=== PATIENT | female | born 1950 | race Caucasian/White ===

== ENCOUNTER 2022-04-19 16:33 | Emergency (ER) | payer MEDICARE, SELFPAY ==
[2022-04-19] VITALS (7 sets, daily range): BP systolic 113–140; BP diastolic 54–67; PULSE 79–91; RESP 20–22; TEMP 36.7–36.9; O2SAT 89–94; BMI 38.2
--- NOTE | 2022-04-19 17:24 | XR_ITS ---
PROCEDURE INFORMATION: Exam: XR Chest Exam date and time: 04/19/2022 5:22 PM Age: 72 years old Clinical indication: Cough and other: Congestion; Patient HX: Shortness of breath, cough, congestion. Quit smoking 2006; Additional info: SOA, productive cough TECHNIQUE: Imaging protocol: Radiologic exam of the chest. Views: 2 views. COMPARISON: No relevant prior studies available. FINDINGS: Lungs: Hazy airspace opacity in right lower lobe. Pleural spaces: Unremarkable. No pleural effusion. No pneumothorax. Heart/Mediastinum: Unremarkable. No cardiomegaly. Bones/joints: Unremarkable. IMPRESSION: Hazy airspace opacity in right lower lobe can be attributed to atelectasis or developing pneumonia in the appropriate clinical context.
--- NOTE | 2022-04-19 17:25 | PC.NURSE ---
rad notified of xray order
[2022-04-19 17:51] LABS: Chloride 93 mmol/L (98-107); Sodium 138 mmol/L (136-145)
[2022-04-19 17:52] LABS: Basophils # 0.1 K/mm3 (0-0.2); Basophils % 0.5 % (0.1-2.0); Eosinophils # 0.2 K/mm3 (0.0-0.4); Eosinophils % 1.1 % (0.1-12.0); Hematocrit 47.9 % (37.0-47.0); Lymphocytes # 1.2 K/mm3 (0.7-4.5); Lymphocytes % 9.2 % (10-50); Mean Corpuscular HGB Conc 31.4 g/dL (31.8-35.4); Mean Corpuscular Volume 92.4 fl (81-99); Mean Platelet Volume 8.6 fl (7.4-10.4); Monocytes # 0.7 K/mm3 (0.1-1.0); Neutrophils # 11.3 K/mm3 (1.8-7.8); Neutrophils % 84.2 % (37.0-80.0); Platelet Count 228 K/mm3 (142-424); Potassium 3.6 mmoL/L (3.5-5.1); Red Blood Count 5.18 M/mm3 (4.20-5.40); Red Cell Distribution Width 14.1 % (11.5-17.5); White Blood Count 13.4 K/mm3 (4.8-10.8)
[2022-04-19 17:54] LABS: Alanine Aminotransferase 13 U/L (12-78); Albumin Level 4.1 g/dl (3.5-5.0); Albumin/Globulin Ratio 1.3 (1.1-1.8); Alkaline Phosphatase 64 U/L (38-126); Aspartate Amino Transferase 19 U/L (14-36); Bilirubin,Total 0.5 mg/dl (0.2-1.3); Blood Urea Nitrogen 18 mg/dl (7-17); Creatinine Clearance Estimated 86 mL/min (50-200); Estimated Glomerular Filt Rate 83 ml/min (>60); GFR (African American) 100 ML/MIN (>60); Globulin 3.2 g/dL (1.3-3.2); Total Protein,Serum 7.3 g/dl (6.3-8.2)
[2022-04-19 17:55] LABS: Anion Gap 10.6 mEq/L (5-15); Carbon Dioxide 38 mmol/L (22.0-30.0); Glucose 108 mg/dl (74-100)
--- NOTE | 2022-04-19 18:09 | PC.NURSE ---
covid swab sent to lab at this time
[2022-04-19 18:13] LABS: Coronavirus 19, PCR Not Detected (NotDetected); Influenza A, PCR Not Detected (NotDetected); Influenza B, PCR Not Detected (NotDetected)
[2022-04-19 18:16] LABS: Lactic Acid 0.7 mmol/L (0.7-2.1)
--- NOTE | 2022-04-19 19:46 | HMH.EDGENADL ---
Discharge Plan Disposition Patient Disposition: Home, Self-Care Condition: Fair Prescriptions Prescriptions: New azithromycin [Zithromax] 250 mg tablet 250 mg PO DAILY 4 Days Qty: 4 0RF Rx Instructions: start on day 2 of therapy cefdinir 300 mg capsule 300 mg PO BID 10 Days Qty: 20 0RF prednisone 20 mg tablet 20 mg PO BID Qty: 10 0RF Referrals Follow up/Referrals: Casandra Lawton APRN [Primary Care Provider] - See instructions Activity Restrictions/Add. Instructions Additional Instructions/Restrictions: Additional instructions for PNEUMONIA: Take antibiotics as prescribed. See your physician as soon as possible for further evaluation. Return immediately if you have an uncontrollable fever greater than 102 degrees, difficulty breathing or shortness of breath, persistent vomiting, or severe chest pain. Continue oxygen. Take prednisone as prescribed. Use albuterol inhaler 2 puffs 4 times a day. Clinical Impressions Clinical Impression: Community acquired pneumonia, Acute hypoxemic respiratory failure, COPD (chronic obstructive pulmonary disease) Instructions Patient Instructions: DI for Chronic Obstructive Pulmonary Disease, DI for Pneumonia -- Adult Discharge ED Provider: Seven Abdi General Adult HPI General Chief complaint: Shortness of Breath/Dyspnea Stated complaint: Congestion,Cough,Fever Time Seen by Provider: 04/19/22 19:33 Mode of Arrival: Ambulatory Source of Information: Patient Limitations: No Limitations Description of Symptoms (Recalled from ER Triage Doc. by RN): pt reports productive cough x3 days, increased SOA and low SaO2 on home oxygen at 3L per NC. Pt reports was seen at [facility] approx 2 weeks ago, was sent to ER from pcp office r/t low SaO2 for PE work up r/t recent air plane travel. Pt reports was told she was positive for the flu negative on all other tests was sent home on home O2. Pt reports until 3 days ago was only wearing O2 at night. History of Present Illness HPI narrative: Patient states she has a history of COPD. She complains of cough, shortness of breath, low oxygen saturation. She says that 2 weeks ago she had shortness of breath and was sent to the emergency department at [facility] to rule out a pulmonary embolism because she had recently had air travel. She had a CT angiogram that was negative. Flu test was positive. She says her oxygen saturation was low, in the 70s at the doctor's office. She was sent home from the emergency department on home oxygen 3 L. She was able to eventually decrease it to only wearing it at night, but over the past 3 days has a worse productive cough, shortness of breath, and her oxygen saturation drops into the 70s when she gets up and walks around. She therefore has been wearing the oxygen 24 hours for the past couple of days. She feels feverish but has not had a documented fever. She has a wet nose , denies sore throat. Denies chest pain. She is a former smoker. She is not on any treatment at home for COPD. Related Data Previous Rx's Medication Instructions Recorded azithromycin 250 mg tablet 250 mg PO DAILY 4 days #4 tabs 04/19/22 (Zithromax) cefdinir 300 mg capsule 300 mg PO BID 10 days #20 caps 04/19/22 prednisone 20 mg tablet 20 mg PO BID #10 tabs 04/19/22 Allergies Allergy/AdvReac Type Severity Reaction Status Date / Time ciprofloxacin [From Cipro] Allergy Verified 04/19/22 16:59 codeine Allergy Verified 04/19/22 16:59 diazepam [From Valium] Allergy Verified 04/19/22 16:59 guaifenesin [From Entex LA] Allergy Verified 04/19/22 16:59 phenylephrine [From Entex LA] Allergy Verified 04/19/22 16:59 phenylpropanolamine Allergy Verified 04/19/22 16:59 [From Entex LA] promethazine [From Phenergan] Allergy Verified 04/19/22 16:59 Sulfa (Sulfonamide Allergy Verified 04/19/22 16:59 Antibiotics) [facility] Disclaimer: The information contained in this section may hav
--- NOTE | 2022-04-19 19:57 | PC.NURSE ---
shift change report given to rafa magallanesrn
--- NOTE | 2022-04-19 20:36 | PC.NURSE ---
Lab called and stated that covid/flu swab failed 2x and asked for a recollect. s/w Pt she agreed to a 2nd swab and this was sent to lab.
== END 2022-04-19 22:33 | disposition home or self-care (01) ==
PROVIDERS: Emergency Provider Emergency Medicine; PCP Nurse Practitioner Family
DX: J96.01 Acute respiratory failure with hypoxia (principal); J18.9 Pneumonia, unspecified organism; J44.9 Chronic obstructive pulmonary disease, unspecified
CPT/HCPCS: 71046; 80053; 83605; 85025; 87040; 90471; 96374; 96375; 99285; C9803; J0456; J0696; J2405; U0003; U0005

== ENCOUNTER 2022-09-04 14:18 | Emergency (ER) | payer MEDICARE, SELFPAY ==
[2022-09-04] VITALS (9 sets, daily range): BP systolic 119–154; BP diastolic 60–71; PULSE 76–98; RESP 18–20; TEMP 36.7; O2SAT 68–93; BMI 36.6
--- NOTE | 2022-09-04 14:30 | PC.NURSE ---
RESPIRATORY NOTIFIED OF G
--- NOTE | 2022-09-04 14:34 | PC.NURSE ---
RESPIRATORY AT BEDSIDE
--- NOTE | 2022-09-04 14:36 | PC.NURSE ---
RT at BS
--- NOTE | 2022-09-04 14:40 | PC.NURSE ---
CARLITO VELASCO at
--- NOTE | 2022-09-04 14:42 | PC.NURSE ---
DR LLANOS AT BEDSIDE
[2022-09-04 14:51] LABS: ABG Base Excess 6.8 mmol/L (-2.4-2.3); ABG HCO3 31.7 mmhg (22.0-26.0); ABG Oxygen Saturation 88 % (90-100); ABG PH 7.39 mmol/L (7.35-7.45); ABG PO2 50.4 mmhg (80-100); ABG TCO2 33.3 mmhg (23-27)
--- NOTE | 2022-09-04 14:51 | CT_ITS ---
PROCEDURE INFORMATION: Exam: CT Head Without Contrast Exam date and time: 09/04/2022 3:05 PM Age: 72 years old Clinical indication: Pain; Headache not specified TECHNIQUE: Imaging protocol: Computed tomography of the head without contrast. Radiation optimization: All CT scans at this facility use at least one of these dose optimization techniques: automated exposure control; mA and/or kV adjustment per patient size (includes targeted exams where dose is matched to clinical indication); or iterative reconstruction. REPORTING DATA: Count of CT and Cardiac NM exams in prior 12 months: This patient has received 0 known CTs and 0 known cardiac nuclear medicine studies in the 12 months prior to the current study. COMPARISON: No relevant prior studies available. FINDINGS: Brain: Normal. No hemorrhage. Unremarkable white matter. No mass effect. Cerebral ventricles: No ventriculomegaly. Paranasal sinuses: Right maxillary sinus retention cyst versus polyp Mastoid air cells: Visualized mastoid air cells are well aerated. Bones/joints: Unremarkable. No acute fracture. Soft tissues: Unremarkable. IMPRESSION: No evidence of acute intracranial abnormality.
[2022-09-04 14:52] LABS: Allen's Test Acceptable; Oxygen 2 L NC %; Source Right Radial
--- NOTE | 2022-09-04 14:53 | PC.NURSE ---
abg results given to CARLITO VELASCO
[2022-09-04 14:54] LABS: ABG PCO2 53.3 mmhg (35.0-45.0)
--- NOTE | 2022-09-04 14:55 | PC.NURSE ---
rad notified of ct order
--- NOTE | 2022-09-04 15:02 | PC.NURSE ---
pt to CT via wheelchair
--- NOTE | 2022-09-04 15:09 | PC.NURSE ---
PT RETURNED FROM CT
[2022-09-04 15:10] LABS: Basophils % 0.3 % (0.1-2.0); Eosinophils # 0.1 K/mm3 (0.0-0.4); Eosinophils % 1.1 % (0.1-12.0); Hematocrit 45.6 % (37.0-47.0); Hemoglobin 14.7 g/dL (12.2-16.2); Lymphocytes # 0.8 K/mm3 (0.7-4.5); Lymphocytes % 6.1 % (10-50); Mean Corpuscular HGB Conc 32.2 g/dL (31.8-35.4); Mean Corpuscular Hemoglobin 29.2 pg (27.0-31.2); Mean Corpuscular Volume 90.7 fl (81-99); Mean Platelet Volume 8.1 fl (7.4-10.4); Monocytes # 0.4 K/mm3 (0.1-1.0); Monocytes % 3.4 % (1.7-9.3); Neutrophils # 11.7 K/mm3 (1.8-7.8); Neutrophils % 89.2 % (37.0-80.0); Platelet Count 257 K/mm3 (142-424); Red Blood Count 5.03 M/mm3 (4.20-5.40); Red Cell Distribution Width 13.8 % (11.5-17.5); White Blood Count 13.1 K/mm3 (4.8-10.8)
[2022-09-04 15:14] LABS: MANUAL DIFFERENTIAL MANUAL DIFFERENTIAL (MANUAL DIFF)
[2022-09-04 15:16] LABS: Alanine Aminotransferase 21 U/L (12-78); Albumin/Globulin Ratio 1.2 (1.1-1.8); Alkaline Phosphatase 60 U/L (38-126); Anion Gap 16.1 mEq/L (5-15); Aspartate Amino Transferase 24 U/L (14-36); Bilirubin,Total 0.4 mg/dl (0.2-1.3); Blood Urea Nitrogen 15 mg/dl (7-17); Calcium 8.3 mg/dl (8.4-10.2); Carbon Dioxide 36 mmol/L (22.0-30.0); Chloride 90 mmol/L (98-107); Creatinine Clearance Estimated 82 mL/min (50-200); Estimated Glomerular Filt Rate 83 ml/min (>60); GFR (African American) 100 ML/MIN (>60); Globulin 3.3 g/dL (1.3-3.2); Glucose 127 mg/dl (74-100); Potassium 4.1 mmoL/L (3.5-5.1); Sodium 138 mmol/L (136-145); Total Protein,Serum 7.3 g/dl (6.3-8.2)
--- NOTE | 2022-09-04 15:30 | CT_ITS ---
PROCEDURE INFORMATION: Exam: CTA Chest With Contrast Exam date and time: 09/04/2022 3:46 PM Age: 72 years old Clinical indication: Other: Hypoxia TECHNIQUE: Imaging protocol: Computed tomographic angiography of the chest with contrast. Exam focused on the arteries. 3D rendering (Not supervised by radiologist): MIP and/or 3D reconstructed images were created by the technologist. Radiation optimization: All CT scans at this facility use at least one of these dose optimization techniques: automated exposure control; mA and/or kV adjustment per patient size (includes targeted exams where dose is matched to clinical indication); or iterative reconstruction. Contrast material: ISOVUE 370; Contrast volume: 70 ml; Contrast route: INTRAVENOUS (IV); REPORTING DATA: Count of CT and Cardiac NM exams in prior 12 months: This patient has received 0 known CTs and 0 known cardiac nuclear medicine studies in the 12 months prior to the current study. COMPARISON: CR XR CHEST 2V 04/19/2022 5:22 PM FINDINGS: Pulmonary arteries: Mild prominence of the main pulmonary artery. Clinically correlate regarding pulmonary arterial hypertension. Bilateral perihilar lymph nodes demonstrated. Aorta: Regions of atherosclerotic vascular calcification involving the aortic arch. Lungs: Patchy bilateral gland ground-glass regions of opacification. Regions of bronchiectasis and mucous plugging demonstrated anteriorly in the lingula. Associated subsegmental atelectasis. Patchy regions of airspace opacification in the juxtapleural regions bilaterally . Pleural spaces: Poorly defined 12 mm pleural based nodular region of opacification measuring 12 mm posteriorly in the right lung apex. Malignancy could not be excluded. Heart: Unremarkable. No cardiomegaly. No pericardial effusion. Coronary arteries: Coronary artery calcification Lymph nodes: Nonspecific mediastinal lymph nodes measuring up to 12 mm. Liver: Hepatic steatosis. Spleen: Evidence of prior splenic Bones/joints: Unremarkable. No acute fracture. Soft tissues: Unremarkable. IMPRESSION: 1. Poorly defined 12 mm pleural based nodular region of opacification measuring 12 mm posteriorly in the right lung apex. Malignancy could not be excluded. For both low risk and high risk patients, consider CT Chest at 3 months, PET/CT, or biopsy. (Reference: Addis) 2. Findings compatible with interstitial lung disease. Superimposed patchy bilateral airspace opacities which may be infectious in etiology. 3. Please see above report for discussion of nonacute findings. REFERENCES: Addis Babb et al. Guidelines for Management of Incidental Pulmonary Nodules Detected on CT Images: From the Fleischner Society 2017. Radiology. 2017;284(1):228-243.
[2022-09-04 15:45] LABS: Hypochromasia 2+; Lymphocytes % 9 % (10-50); Monocytes % 3 % (2-9); Neutrophils % 88 % (42-76); Platelet Estimate Normal; Total Cells Counted 100
--- NOTE | 2022-09-04 15:53 | PC.NURSE ---
PT RETURNED FROM CT
--- NOTE | 2022-09-04 16:16 | PC.NURSE ---
PT MEDICATED PER EMAR, LIGHTS OFF, AT BEDSIDE. PT WITHOUT NEEDS AT THIS TIME
--- NOTE | 2022-09-04 16:46 | PC.NURSE ---
pt restroom and back independently, pt tolerated well. Pt reports headache has improved some. Pt sitting up on side of the bed per her request.
--- NOTE | 2022-09-04 16:55 | PC.NURSE ---
ROUNDED ON PT , REPORTS HEADACHE IMPROVED, NO NEEDS AT THIS TIME. AT BEDSIDE
--- NOTE | 2022-09-04 17:21 | PC.NURSE ---
DR LLANOS AT BEDSIDE TO UPDATE PT
--- NOTE | 2022-09-04 17:29 | HMH.EDGENADL ---
Discharge Plan Disposition Patient Disposition: Home, Self-Care Condition: Good Chief Complaint: Headache Prescriptions Prescriptions: No Action azithromycin [Zithromax] 250 mg tablet 250 mg PO DAILY 4 Days Qty: 4 0RF Rx Instructions: start on day 2 of therapy cefdinir 300 mg capsule 300 mg PO BID 10 Days Qty: 20 0RF prednisone 20 mg tablet 20 mg PO BID Qty: 10 0RF Referrals Follow up/Referrals: Casandra Lawton APRN [Primary Care Provider] - See instructions Clinical Impressions Clinical Impression: Headache Discharge ED Provider: Farhat Callahan General Adult HPI General Chief complaint: Headache Stated complaint: Headache,vomiting,nose bleed Time Seen by Provider: 09/04/22 14:35 Mode of Arrival: Ambulatory Source of Information: Patient Limitations: No Limitations Description of Symptoms (Recalled from ER Triage Doc. by RN): pt reports headache that began monday night. Reports took tylenol x9 tablets yesterday with no relief of headache. Pt reports has been dizzy, began vomiting lasntight and had a nose bleed. Pt reports has not had nose bleeds before. SaO2 68% on RA, pt reports normal SaO2 for her is around 85% on RA reports she wears O2 at 2.5L per NC at night only. Pt denies SOA, no distress noted. Nail beds cyanotic in color on ignacio hands. Pt placed on O2 per NC, SaO2 improved. History of Present Illness HPI narrative: 72yo F presents the ER secondary to 4 days of headache. Took Tylenol yesterday with no improvement. Denies focal neurodeficit. No history of stroke. Complains of nausea with vomiting last night and had a nosebleed. No history of nosebleed in the past. Patient wears 2 L nasal cannula at home. Family bedside reports she typically runs 85% on her home O2. Related Data Previous Rx's Medication Instructions Recorded azithromycin 250 mg tablet 250 mg PO DAILY 4 days #4 tabs 04/19/22 (Zithromax) cefdinir 300 mg capsule 300 mg PO BID 10 days #20 caps 04/19/22 prednisone 20 mg tablet 20 mg PO BID #10 tabs 04/19/22 Allergies Allergy/AdvReac Type Severity Reaction Status Date / Time ciprofloxacin [From Cipro] Allergy Verified 04/19/22 16:59 codeine Allergy Verified 04/19/22 16:59 diazepam [From Valium] Allergy Verified 04/19/22 16:59 guaifenesin [From Entex LA] Allergy Verified 04/19/22 16:59 phenylephrine [From Entex LA] Allergy Verified 04/19/22 16:59 phenylpropanolamine Allergy Verified 04/19/22 16:59 [From Entex LA] promethazine [From Phenergan] Allergy Verified 04/19/22 16:59 Sulfa (Sulfonamide Allergy Verified 04/19/22 16:59 Antibiotics) [facility] Disclaimer: The information contained in this section may have been updated after the patient was seen, as this information can be updated by other users. Social History Smoking Status: Former smoker alcohol intake: never current occupational status: retired Travel in the last 8 weeks: None ROS Obtained: Yes Systems reviewed as appropriate & no additional complaints except as documented Physical Exam General General appearance: alert and in no apparent distress Head Head exam: atraumatic Eye Eye exam: Present PERRL and EOMI ENT ENT exam: Present mucous membranes moist Neck Neck exam: Present trachea midline Chest Chest inspection: Present symmetric chest wall rise Respiratory Respiratory exam: Present normal lung sounds bilaterally; Absent respiratory distress Cardiovascular Cardiovascular exam: Present regular rate, normal rhythm and normal heart sounds Abdominal Exam Abdominal exam: Present soft; Absent distention or tenderness Extremities Exam Extremities exam: Present normal capillary refill; Absent tenderness Back Exam Back exam: Present normal inspection Neurological Exam Neurological exam: Present alert, oriented X3 and normal gait Psychiatric Psychiatric exam: Present normal affect Skin Skin exam: P
== END 2022-09-04 17:40 | disposition home or self-care (01) ==
PROVIDERS: Emergency Provider Family Medicine; PCP Nurse Practitioner Family
DX: R51.9 Headache, unspecified (principal); R11.2 Nausea with vomiting, unspecified; R04.0 Epistaxis; Z87.891 Personal history of nicotine dependence
CPT/HCPCS: 70450; 71275; 80053; 82803; 85007; 85025; 96361; 96372; 96374; 99284; 99285; Q9967

== ENCOUNTER 2024-05-16 10:02 | Outpatient (CLI) | payer MEDICARE, SELFPAY ==
--- NOTE | 2024-05-16 10:08 | CT_ITS ---
FINAL REPORT TECHNIQUE: Axial images were obtained through the chest without contrast. Coronal and sagittal images were obtained and reviewed. Insert low-dose CLINICAL HISTORY: PLEURAL EFFUSION COMPARISON: CTA 09/04/2022 FINDINGS: There are moderate calcifications of the aortic arch. There is no significant mediastinal mass or adenopathy. The heart size is normal. There is no pericardial or pleural effusion. Moderate changes of centrilobular emphysema are noted. Scarring is seen in the lingula. No suspicious infiltrate or nodule identified. Limited images of the upper abdomen demonstrate no acute findings. IMPRESSION: No acute process. No pleural effusion identified. Reviewed, Interpreted and Dictated by Francisco Farah MD Transcribed by Paula Meléndez Authenticated and [facility]
== END 2024-05-16 23:59 | disposition home or self-care (01) ==
LOC: RAD 10:03
PROVIDERS: PCP Nurse Practitioner; Visit Provider Nurse Practitioner Family
DX: J90 Pleural effusion, not elsewhere classified (principal)
CPT/HCPCS: 71250

== ENCOUNTER 2024-12-04 10:11 | Outpatient (CLI) | payer MEDICARE, SELFPAY ==
--- OUTSIDE RECORDS SUMMARY | 2024-12-05 11:07 | XMS_ITS | Clinical Summary ---
Author Organization [facility] Address [address] [place] [address] Care Team Providers Care Skidder Lever Operator Name Role Phone Emilee Vieyra Primary Care Provider [phone] Allergies Active Allergy Reactions Criticality Noted Date Comments Ciprofloxacin Hcl Hives 02/09/2022 Codeine Nausea And Vomiting,Headache 04/30/2015 Diazepam Nausea And Vomiting 04/30/2015 Pseudoephedrine-Guaifenesin Other (See C omwanda),GI Intolerance 02/09/2022 shakes Promethazine Nausea And Vomiting 02/09/2022 Sulfa Antibiotics GI Intolerance 04/30/2015 Medications levothyroxine (SYNTHROID, LEVOTHROID) 25 MCG tablet 01/21/2022 Active omeprazole (priLOSEC) 40 MG capsule 01/21/2022 Active triamterene-hyd rochlorothiazid e (MAXZIDE-25) 37.5-25 MG per tablet 01/21/2022 Active sertraline (ZOLOFT) 100 MG tablet 01/17/2022 Active Zinc 50 MG tablet Take by mouth. Active APPLE CIDER VINEGAR PO Take by mouth. Active Trelegy Ellipta 100-62.5-25 MCG/ACT inhaler 01/20/2023 Act ana D-3-5 125 MCG (5000 UT) capsule capsule Take 1 capsule by mouth Daily. 11/17/2023 Active albuterol sulfate HFA 108 (90 Base) MCG/ACT inhaler 03/06/2024 Act ana traZODone (DESYREL) 100 MG tablet 03/07/2024 Active eplerenone (INSPRA) 50 MG tablet Take 1 tablet by mouth Daily. 07/12/2024 Active potassium chloride (Klor-Con M20) 20 MEQ CR tablet Take 1 tablet by mouth 3 (Three) Times a Week. 12 tablet 1 10/08/2024 Active furosemide (LASIX) 40 MG tablet Take 1 tablet by mouth 3 (Three) Times a Week. 12 tablet 1 10/08/2024 Active Active Problems Problem Noted Date Diagnosed Date Fibrocystic breast changes 2024 Low back pain 2024 Malignant neoplasm of urinary bladder 2024 Mixed anxiety depressive disorder 2024 Osteoarthritis 2024 Osteopenia 2024 Shortness of breath 2024 Essential hypertension 04/21/2023 Gastroesophageal reflux disease without esophagi tis 04/21/2023 Hypothyroidism 04/21/2023 Primary insomnia 04/21/2023 Vitamin D deficiency 04/21/2023 Acute exacerbation of chronic obstructive pulmon duncan disease 01/03/2023 Encounters Date Type Department Care Team Description 10/08/2024 Refill [facility] [address] [facility] [place] [id number] Yoshi Mckeon MD Med Refill from Last 3 Months Family History Medical History Relation Name Comments No Known Problems Father Diabetes Maternal Grandmother [place] Heart attack Maternal Grandmother [place] Osteoporosis Mother Sarah Monroy Cancer Paternal Grandmother Luna Jenkins Cancer Sister Luna Tejeda Relation Name Status Comments Father Maternal Grandmother [place] Mother Sarah Monroy Paternal Grandmother Luna Jenkins Sister Luna Tejeda Social History Tobacco Use Types Packs/Day Years Used Date Smoking Tobacco: Former Cigarettes 3.5 38.3 0 04/17/1967 - 07/21/2006 Smokeless Tobacco: Never Tobacco Cessation:Counseling Given: Not Answered Alcohol Use Standard Drinks/Week Comments Never 0 (1 standard drink = 0.6 oz pur e alcohol) Comments Unknown Sex and Gender Information Value Date Recorded Sex Assigned at Female 08/27/2024 11:13 AM EDT Legal Sex Female 12:36 PM EDT Gender Identity Not on file Sexual Orientation Straight 08/27/2024 11 :13 AM EDT Last Filed Vital Signs Vital Sign Reading Time Taken Comments Blood Pressure 120/80 08/28/2024 9:54 AM EDT Pulse 92 12/19/2023 10:08 AM EDT Temperature 36.7 C (98 F) 04/30/2015 9:22 AM EST Respiratory Rate 18 12/19/2023 10:08 AM EDT Oxygen Saturation 95% 12/19/2023 10:08 AM EDT Inhaled Oxygen Concentration - - Weight 103 kg (227 lb 9.6 oz) 08/28/2024 9:54 AM EDT Height 166 cm (5' 5.35 ) 08/28/2024 9:54 AM EDT Body Mass Index 37.47 08/28/2024 9:54 AM EDT Plan of Treatment Health Maintenance Due Date Last Done Comments DXA SCAN 1952 TDAP/TD VACCINES (1 - Tdap) 1971 MAMMOGRAM 1992 COLOGUARD 1997 COLON CANCER SCREENING 5 YEA R SIGMOIDOSCOPY 1997 COLONOSCOPY 1997 [address] CANCER SCREENING 1997 CT COLONOGRAPHY 1997 FECAL OCCULT BLOOD TEST 1997 FIT Testing (1 year) 1997 ZOSTER VACCINE (1 of 2) 2002 ANNUAL WELLNESS VISIT 02/09/2022 HEPATITIS C SCREENING 02/09/2022 Pneumococcal Vaccine 50+ (2 of 2 - PCV) 07/08/2023 07/07/2022 COVID-19 Vaccine (3 - 2023-2 5 season) 2023 03/06/2021, 06/25/2020 INFLUENZA VACCINE 01/15/2025 02/10/2023, , 02/15/2020, Additional history exists [place] [address] [address] MEDICARE ADVANTAGE HMO Care Teams Skidder Lever Operator Relationship Specialty Start Date End Date Emilee Vieyra Sheree [address] [place] [address] PCP - General Nurse Practitioner 08/22/23
--- OUTSIDE RECORDS SUMMARY | 2024-12-05 11:07 | XMS_ITS | Encounter Summary ---
Author Organization [facility] Address [address] [place] [id number] Care Team Providers Care Front Office Spec Name Role Phone Emilee Vieyra Primary Care Provider [phone] Reason for Visit * Reason Onset Date Comments Error 09/23/2022 Encounter Details Date Type Department Care Team (Late st Contact Info) Description 09/23/2022 Telephone [facility] [address] [place] [address] Luis Carlos Mar MD [address] [address] Error Social History Tobacco Use Types Packs/Day Years Used Date Smoking Tobacco: Former Cigarettes 3.5 30 1 976 - 2006 Smokeless Tobacco: Never Alcohol Use Standard Drinks/Week Comments Never 0 (1 standard drink = 0.6 oz pur e alcohol) Comments Unknown Sex and Gender Information Value Date Recorded Sex Assigned at Female 08/27/2024 11:13 AM EDT Legal Sex Female 12:36 PM EDT Gender Identity Not on file Sexual Orientation Straight 08/27/2024 11 :13 AM EDT documented as of this encounter Plan of Treatment Not on file documented as of this encounter Visit Diagnoses Not on filedocumented in this encounter Care Teams Front Office Spec Relationship Specialty Start Date End Date Emilee Vieyra [address] [place] [address] PCP - General Nurse Practitioner 08/22/23 documented as of this encounter
--- OUTSIDE RECORDS SUMMARY | 2024-12-05 11:07 | XMS_ITS | Encounter Summary ---
Author Organization [facility] Address [address] [place] [address] Care Team Providers Care Various Exceptionalities Teacher Name Role Phone Emilee Vieyra Primary Care Provider [phone] Reason for Visit * Reason Comments Med Refill Encounter Details Date Type Department Care Team (Late st Contact Info) Description 10/08/2024 Refill [facility] [address] [place] [address] Yoshi Mckeon MD [address] [place] [address] Med Refill Social History Tobacco Use Types Packs/Day Years Used Date Smoking Tobacco: Former Cigarettes 3.5 38.3 0 04/17/1967 - 07/21/2006 Smokeless Tobacco: Never Alcohol Use Standard Drinks/Week [...] on filedocumented in this encounter Care Teams Various Exceptionalities Teacher Relationship Specialty Start Date End Date Emilee Vieyra [address] [place] [address] PCP - General Nurse Practitioner 08/22/23 documented as of this encounter
== END 2024-12-04 23:59 | disposition home or self-care (01) ==
LOC: LAB.DROPOF 12-05 11:04
PROVIDERS: PCP Nurse Practitioner; Visit Provider Nurse Practitioner
DX: B35.1 Tinea unguium (principal)
CPT/HCPCS: 87101; 87220